=== PATIENT | female | born 1950 | race Caucasian/White ===

== ENCOUNTER 2024-06-18 10:07 | Emergency (ER) | payer MEDICARE, SELFPAY ==
[2024-06-18] VITALS (10 sets, daily range): BP systolic 148–210; BP diastolic 51–84; PULSE 57–73; RESP 18–21; TEMP 36.9; O2SAT 94–97; BMI 33.4
--- NOTE | ~2024-06-18 | XR_ITS ---
EXAMINATION: XR CHEST CLINICAL INFORMATION: Cough. COMPARISON: None available. TECHNIQUE: 2 views of the chest were obtained. FINDINGS: The lungs are well-inflated. Cardiac silhouette enlarged. Degenerative changes in the thoracic spine. Mildly prominent interstitial and perihilar markings. Small bilateral pleural effusions. Streaky bibasilar opacities, left greater than right. Possible pleural thickening along the lateral inferior aspects of the bilateral thoraces. XR/XR chest 2V IMPRESSION: 1. Small bilateral pleural effusions. Streaky bibasilar opacities, left greater than right. Possible pleural thickening on the bilateral inferolateral aspects of the thorax. 2. Increased prominence in the right upper paramediastinal region. 3. Enlarged cardiac silhouette. 4. CT scan of the chest recommended. This study was presented today June 18, 2024 for interpretation. Stat results provided at this time as requested by referring provider. Electronically signed by: Nereida Markham MD 06/18/2024 12:43 PM [facility] [place]
--- NOTE | ~2024-06-18 | CT_ITS ---
EXAMINATION: CT CHEST WITHOUT CONTRAST CLINICAL INFORMATION: Abnormal chest x-ray COMPARISON: Chest x-ray June 18, 2024. CT chest August 13, 2013 TECHNIQUE: Multidetector volumetric CT imaging of the chest was done. Axial MIP volume rendering provided. Sagittal and coronal reformatted images were obtained. This CT examination was performed using dose optimization techniques as appropriate, variously including the following: *Automated exposure control *Adjustment of mA and/or kV according to patient size (this includes techniques or standardized protocols for targeted exams where dose is matched to indication/reason for exam; i.e. extremities or head) *Use of iterative reconstruction technique DLP: 309 mGy-cm FINDINGS: LUNGS: Fine subpleural reticular opacities in the lungs bilaterally most pronounced at the lung bases. This could be due to dependent atelectasis versus early/mild interstitial lung disease. There is also mild bronchial wall thickening at the perihilar lung parenchyma most affecting the lower lobes bilaterally. No focal consolidation. MEDIASTINUM: No mediastinal mass or significant lymphadenopathy. Heart size is normal. No pericardial effusion. CORONARY ARTERY CALCIFICATION: Small volume of coronary calcification PLEURA: There is no pleural effusion. No pleural mass or thickening. AXILLA: No lymphadenopathy. UPPER ABDOMEN: Unremarkable. OSSEOUS STRUCTURES: Multilevel degenerative spondylosis spine. CT/CT chest wo IV con IMPRESSION: Fine subpleural reticular opacities in the lungs bilaterally most pronounced at the lung bases. This could be due to dependent atelectasis versus early/mild interstitial lung disease. There is also mild bronchial wall thickening at the perihilar lung parenchyma most affecting the lower lobes bilaterally. No focal consolidation. No mediastinal mass. No pleural effusion or pleural thickening. Fleischner guidelines were followed. Electronically signed by: Yoandy Rascon MD 06/18/2024 04:45 PM [facility] [place]
--- NOTE | 2024-06-18 10:24 | ECG_ITS ---
Test Reason : CHEST PAIN Blood Pressure : / mmHG Vent. Rate : 056 BPM Atrial Rate : 056 BPM P-R Int : 178 ms QRS Dur : 130 ms QT Int : 462 ms P-R-T Axes : 022 -40 -13 degrees QTc Int : 445 ms Sinus bradycardia Left axis deviation Left ventricular hypertrophy with QRS widening ( R in aVL , [place] product ) Cannot rule out Septal infarct , age undetermined Abnormal ECG No previous ECGs available Referred By: Ramón Spring Electronically Signed By:Zachariah Tena
--- NOTE | 2024-06-18 10:25 | ED.GENADULT ---
HPI - General Adult General Chief complaint: Recheck/Abnormal Lab/Rx Stated complaint: HIGH BP 210/88,NO MED IN AM,COUGH X10D,FROM URGENT Time Seen by Provider: 06/18/24 10:12 Source: patient Mode of arrival: EMS History of Present Illness HPI narrative: Patient for referred to us by the urgent care she presented to urgent care complaining of cough congestion for about a week she was noted to have elevated blood pressure it was sent to the emergency department by ambulance. To be noted the patient has no been taking BP medication today Onset (ago): day(s) (7) Radiation: non-radiation Severity: moderate Quality: burning Pain Consistency: constant Relieving factors: none Related Data Allergies Allergy/AdvReac Type Severity Reaction Status Date / Time No Known Allergies Allergy Verified 06/18/24 10:18 Review of Systems ENT: Reports system reviewed and no additional complaints, except as documented Cardiovascular: Cardiovascular: Reports no additional cardiovascular complaints and Reports dyspnea Respiratory: Respiratory: Reports dyspnea [facility] Past Medical History [facility] Narrative: HTN Source: unable to obtain Social History Social History Alcohol intake: never Smoked in Last 30 Days: Yes Use of substances other than those prescribed or required for medical reasons: No Any prior treatment program specific to substance use: No Advance Directives: Yes Advance Directives Information Provided: Yes Advance Directives on File: No Physical Exam ED Vital Signs: Vital Signs - 24 hr 06/18/24 10:16 06/18/24 10:47 06/18/24 10:48 Temperature 98.4 F Pulse Rate 65 Respiratory Rate 18 Blood Pressure 189/69 H 173/76 H 173/76 H Pulse Oximetry 95 Oxygen Delivery Method Room Air 06/18/24 10:55 06/18/24 12:05 06/18/24 12:07 Temperature Pulse Rate 73 60 Respiratory Rate 18 Blood Pressure 173/76 H 177/72 H 177/72 H Pulse Oximetry 94 Oxygen Delivery Method Room Air 06/18/24 14:44 Temperature Pulse Rate 57 Respiratory Rate 18 Blood Pressure 148/51 H Pulse Oximetry 94 Oxygen Delivery Method Room Air BMI result Body Mass Index 33.4 Const General: cooperative Nutritional Appearance: average body habitus Orientation/consciousness: patient oriented x3 Limitations: no limitations HENMT Head: Yes normal to inspection General nose exam: Normal external nose present Face and sinus: Yes normal facial exam Mouth: Normal oral and palatal mucosa present Neck Neck: Yes normal visual inspection Chest Chest palpation & inspection: normal inspection of the chest Resp Effort & Inspection: normal respiratory effort Auscultation: rhonchi Cardio Jugular venous distension: no JVD Rate: regular rate Rhythm: regular rhythm GI Inspection: Yes normal to inspection Palpation (GI): Soft to palpation, not firm and nontender Percussion: Yes normal to percussion Skin General skin exam: no rashes or lesions noted and elasticity normal Lesions: no lesions Rashes: no rashes Neuro General: patient oriented x3 Medications Administered Discontinued Medications Generic Name Dose Route Start Last Admin Trade Name Freq PRN Reason Stop Dose Admin Amlodipine Besylate 10 mg 06/18/24 10:22 06/18/24 10:47 Amlodipine Besylate 10 Mg Tablet PO 06/18/24 10:23 10 mg ONCE ONE Administration Protocol Carvedilol 12.5 mg 06/18/24 11:59 06/18/24 12:07 Carvedilol 12.5 Mg Tablet PO 06/18/24 12:00 12.5 mg ONCE ONE Administration Protocol Hydrochlorothiazide 25 mg 06/18/24 12:00 06/18/24 12:05 Hydrochlorothiazide 25 Mg Tablet PO 06/18/24 12:01 25 mg ONCE ONE Administration Protocol Lisinopril 20 mg 06/18/24 10:22 06/18/24 10:48 Lisinopril 20 Mg Tablet PO 06/18/24 10:23 20 mg ONCE ONE Administration Protocol Medical Decision Making Medical Decision Making MDM Narrative: Patient presented with cough congestion and sent by the urgent care because elevated blood pressure we will give a usual blood pressure medication do a chest x-ray Differential Diagnosis Differential Diagnoses: The differential diagnosis associated with the presentation includes URIs/pneumonia/CHF Lab Data 06/18/24 10:39 06/18/24 10:39 Labs: Lab Results 06/18/24 Range/Units 10:39 WBC 6.7 (4.8-10.8) X10*3/uL RBC 4.25 (4.20-5.50) X10*6/uL Hgb 12.3 (12.0-16.0) g/dl Hct 37.2 (37.0-47.0) % MCV 87.5 (80.0-98.0) fL MCH 28.9 (27.0-33.0) pg MCHC 33.1 (31.0-35.0) g/dl RDW 13.5 (11.0-16.0) % Plt Count 226 (160-400) X10*3/uL MPV 10.2 (9.4-12.3) fL Immature Gran % (Auto) 0.6 H (0.0-0.4) % Neut % (Auto) 64.1 (45-73) % Lymph % (Auto) 22.7 (20-40) % [place] % (Auto) 10.0 (2-11) % Eos % (Auto) 2.2 (0-4) % Baso % (Auto) 0.4 (0-2) % Lymph # (Auto) 1.5 (1.2-4.9) X10*3/uL [place]y # (Auto) 0.7 (0.1-1.2) X10*3/uL Eos # (Auto) 0.2 (0.0-0.4) X10*3/uL Baso # (Auto) 0.0 (0.0-0.2) X10*3/uL Abs Immat Gran (auto) 0.04 H (0.00-0.03) X10*3/uL Absolute Neuts (auto) 4.3 (2.0-8.3) x10*3/uL Absolute Nucleated RBC 0.000 (0.0-0.012) X10*3/uL Nucleated RBC % (auto) 0.0 (0.0-0.2) /100WBC Sodium 141 (135-145) mmol/L Potassium 3.5 (3.3-5.1) mmol/L Chloride 108 (96-108) mmol/L Carbon Dioxide 25 (22-29) mmol/L Anion Gap 12 (12-20) BUN 10 (9-16) mg/dL Creatinine 0.73 (0.5-1.4) mg/dL Estim Creat Clear Calc 86.0 Estimated GFR > 60 Random Glucose 103 (60-115) mg/dL Calcium 9.7 (8.4-10.2) mg/dL Total Bilirubin 0.4 (0.0-1.0) mg/dL AST 29 (5-31) U/L ALT 37 H (0-31) U/L Alkaline Phosphatase 75 (39-117) U/L Troponin I High Sens 3.5 (<3.5-17.0) ng/L B-Natriuretic Peptide 60 (<100) pg/mL Total Protein 6.2 L (6.5-8.0) g/dL Albumin 3.9 (3.5-5.0) g/dL Influenza Type A (PCR) NEGATIVE (Negative) Influenza Type B (PCR) NEGATIVE (Negative) RSV RNA Qual (PCR) NEGATIVE (Negative) SARS-CoV-2 RNA (RT-PCR) NEGATIVE (Negative) Discharge Plan Discharge Clinical Impression: HTN (hypertension), Cough Print Language: Latvian
[2024-06-18 10:42] LABS: MANUAL DIFF FLAG NO
[2024-06-18 10:47] LABS: Basophils Percent Auto 0.4 % (0-2); Eosinophils Absolute Auto 0.2 X10*3/uL (0.0-0.4); Eosinophils Percent Auto 2.2 % (0-4); Hematocrit 37.2 % (37.0-47.0); Hemoglobin 12.3 g/dl (12.0-16.0); Imm Gran Abs Auto 0.04 X10*3/uL (0.00-0.03); Imm Gran Pct Auto 0.6 % (0.0-0.4); Lymphocytes Absolute Auto 1.5 X10*3/uL (1.2-4.9); Lymphocytes Percent Auto 22.7 % (20-40); Mean Corpuscular HGB Conc 33.1 g/dl (31.0-35.0); Mean Corpuscular Hemoglobin 28.9 pg (27.0-33.0); Mean Corpuscular Volume 87.5 fL (80.0-98.0); Mean Platelet Volume 10.2 fL (9.4-12.3); Monocytes Absolute Auto 0.7 X10*3/uL (0.1-1.2); Neutrophils Absolute Auto 4.3 x10*3/uL (2.0-8.3); Neutrophils Percent Auto 64.1 % (45-73); Platelet Count 226 X10*3/uL (160-400); Red Blood Count 4.25 X10*6/uL (4.20-5.50); Red Cell Distribution Width 13.5 % (11.0-16.0); White Blood Count 6.7 X10*3/uL (4.8-10.8)
[2024-06-18] MEDS: amLODIPine Besylate 10 MG TABLET PO (10:47)
[2024-06-18] MEDS: lisinopriL 20 MG TABLET PO (10:48)
[2024-06-18 11:01] LABS: Alanine Aminotransferase 37 U/L (0-31); Albumin Level 3.9 g/dL (3.5-5.0); Alkaline Phosphatase 75 U/L (39-117); Anion Gap 12 (12-20); Aspartate Amino Transferase 29 U/L (5-31); Bilirubin Total 0.4 mg/dL (0.0-1.0); Blood Urea Nitrogen 10 mg/dL (9-16); Calcium 9.7 mg/dL (8.4-10.2); Carbon Dioxide 25 mmol/L (22-29); Chloride 108 mmol/L (96-108); Estimated Glomerular Filt Rate > 60; Glucose Random 103 mg/dL (60-115); Potassium 3.5 mmol/L (3.3-5.1); Sodium 141 mmol/L (135-145); Total Protein 6.2 g/dL (6.5-8.0)
[2024-06-18 11:08] LABS: Troponin-I High Sensitivity 3.5 ng/L (<3.5-17.0)
[2024-06-18 11:21] LABS: Influenza A PCR NEGATIVE (Negative); Influenza B PCR NEGATIVE (Negative); Resp Syncy Virus RNA Qual PCR NEGATIVE (Negative); SARS COV2 PCR INHOUSE NEGATIVE (Negative)
[2024-06-18] MEDS: hydroCHLOROthiazide 25 MG TABLET PO (12:05)
[2024-06-18] MEDS: carvediloL 12.5 MG TABLET PO (12:07)
--- NOTE | 2024-06-18 13:05 | PC.NURSE ---
Arrived via [facility]IBA from urgent care due to high BPs and cough [id number], alert and oriented, resting comfortably, family member at bedside, PO BP meds given as ordered for High BPs. Patient current smoker. Chest x-ray obtained, awaiting CT scan.
[2024-06-18 13:32] LABS: B Type Natriuretic Peptide 60 pg/mL (<100)
[2024-06-18] MEDS: Azithromycin 500 MG TABLET PO (17:22)
[2024-06-18] MEDS: Amoxicillin 500 MG CAPSULE 1000 MG PO (17:22)
--- NOTE | 2024-06-18 17:26 | PC.NURSE ---
Patient requesting to leave, provider aware. Patient educated on risks of going home and falling- states he is gonig home and he is fine. IV removed, patient ambulated to bathroom to change out of hospital gown
== END 2024-06-18 17:41 | disposition home or self-care (01) ==
PROVIDERS: Emergency Medicine; Emergency Provider Emergency Medicine Emergency Medical Services; PCP Nurse Practitioner Family
DX: R05.9 Cough, unspecified (principal); R00.1 Bradycardia, unspecified; R79.89 Other specified abnormal findings of blood chemistry; R07.89 Other chest pain; R06.02 Shortness of breath; I10 Essential (primary) hypertension; Z79.899 Other long term (current) drug therapy; Z03.818 Encounter for observation for suspected exposure to other biological agents ruled out
CPT/HCPCS: 0241U; 36415; 71046; 71250; 80053; 83880; 84484; 85025; 93005; 99284

== ENCOUNTER → 2024-06-18 10:24 | Outpatient (BNV) | payer MEDICARE, SELFPAY | PROVIDERS: Emergency Provider Emergency Medicine; PCP Nurse Practitioner Family; Visit Provider Internal Medicine Cardiovascular Disease | DX: R07.9 Chest pain, unspecified (principal); R00.1 Bradycardia, unspecified; R94.31 Abnormal electrocardiogram [ECG] [EKG] | CPT/HCPCS: 93010 ==